=== PATIENT | male | born 1950 | race Caucasian/White ===

== ENCOUNTER → 2020-09-30 | Outpatient (CLI) | payer BC, MEDICARE ==
[~2020-09-30] MED LIST: NAPR220C2 PO
[2020-09-30 10:51] LABS: BASOPHILS % (AUTO) 1 % (0-1); EOSINOPHILS % (AUTO) 5 % (1-7); LYMPHOCYTES % (AUTO) 40 % (22-44); MEAN CORPUSCULAR HEMOGLOBIN 32.9 pg (27.5-34.5); MEAN CORPUSCULAR HGB CONC 34.2 g/dL (33.2-36.2); MEAN PLATELET VOLUME 7.6 fL (7.4-10.4); MONOCYTES % (AUTO) 10 % (2-9); NEUTROPHILS % (AUTO) 43 % (42-75); PLATELET COUNT 173 x10^3/uL (130-400); RED BLOOD COUNT 4.63 x10^6/uL (4.38-5.82); RED CELL DISTRIBUTION WIDTH 13.6 % (9.4-14.8)
[2020-09-30 10:52] LABS: MD NO
[2020-09-30 11:03] LABS: INTERNATIONAL NORMALIZED RATIO 1.02 (0.93-1.1); PROTHROMBIN TIME 10.9 Seconds (9.6-11.5)
[2020-09-30 11:04] LABS: ANION GAP 1 mmol/L (5-15); CALCIUM 8.4 mg/dL (8.5-10.1); CHLORIDE 112 mmol/L (98-107); CREATININE 1.48 mg/dL (0.7-1.3)
== END | disposition home or self-care (01) ==
LOC: STAR 09:07
PROVIDERS: ATTEND Orthopaedic Surgery
DX: Z01.812 Encounter for preprocedural laboratory examination (principal); Z20.822 Contact with and (suspected) exposure to COVID-19; M17.11 Unilateral primary osteoarthritis, right knee; Z79.01 Long term (current) use of anticoagulants
CPT/HCPCS: 36415; 80048; 83036; 85025; 85610; 85730; 87081; 93005; U0003

== ENCOUNTER 2020-10-06 12:12 | Inpatient (IN) | payer BC, MEDICARE ==
[~2020-10-06] VITALS: Ht 190.5 cm; Wt 151.6 kg
[2020-10-06] MEDS ORDERED: KETOROLAC 60 MG/2 ML ONE (12:17)
[2020-10-06] MEDS ORDERED: TRANEXAMIC ACID 100 MG/ML, 10ML ONE ×2 (12:18)
[2020-10-06] MEDS ORDERED: ROPIvacaine/PF 0.5%, 20 ML ONE (12:18)
[2020-10-06] MEDS ORDERED: ROPIvacaine/PF 0.5%, 30 ML ONE (12:18)
[2020-10-06] MEDS ORDERED: SODIUM CHLORIDE 0.9% 50 ML ONE (12:18)
[2020-10-06] MEDS ORDERED: VANCOMYCIN 1,000 MG ONE (12:18)
[2020-10-06] MEDS ORDERED: EPINEPHRINE 1 MG/ML, 1ML ONE (12:18)
[2020-10-06 12:49] VITALS: BP 218/106
[2020-10-06] MEDS ORDERED: CHLORHEXIDINE 15 ML UDC ONE (12:50)
[2020-10-06] MEDS ORDERED: CHLORHEXIDINE 15 ML UDC PO ONE (13:00)
[2020-10-06] MEDS ORDERED: ACETAMINOPHEN 500 MG TABLET PO ONE (13:00)
[2020-10-06] MEDS ORDERED: GABAPENTIN 300 MG CAPSULE PO ONE (13:00)
[2020-10-06] MEDS ORDERED: FENTANYL PF 100 MCG/2ML ONE ×2 (13:07→13:08)
[2020-10-06] MEDS: LACTATED RINGERS 1,000 ML IV SCH ×2 (13:11→18:23)
[2020-10-06] MEDS ORDERED: PROPOFOL 50 ML ONE (13:25)
[2020-10-06] MEDS ORDERED: hydrALAzine 20 MG/ML, 1ML IV ONE (13:30)
[2020-10-06] MEDS ORDERED: CEFAZOLIN PMX 2GM/50ML 50 ML IVPB SCH (14:00)
[2020-10-06] MEDS ORDERED: ONDANSETRON 2MG/ML, 2ML IV PRN (14:00)
[2020-10-06] MEDS ORDERED: BISACODYL 10 MG SUPP PR PRN (14:00)
[2020-10-06] MEDS ORDERED: SENNA/DOCUSATE TABLET PO PRN (14:00)
[2020-10-06] MEDS ORDERED: DIPHENHYDRAMINE 25 MG CAPSULE PO PRN (14:00)
[2020-10-06] MEDS ORDERED: HYDROcodone/APAP 5/325 TABLET PO PRN (14:00)
[2020-10-06] MEDS ORDERED: ZOLPIDEM 5MG TABLET PO PRN (14:00)
[2020-10-06] MEDS ORDERED: MAGNESIUM HYDROXIDE 8%, 30ML UDC PO PRN (14:00)
[2020-10-06] MEDS ORDERED: ONDANSETRON 4 MG TABLET PO PRN (14:00)
[2020-10-06] MEDS ORDERED: HYDROmorphone 1 MG/ML, 1ML INJ IV PRN (14:00)
[2020-10-06] MEDS ORDERED: ACETAMINOPHEN 650 MG/20.3 ML UDC PO PRN (14:00)
[2020-10-06] MEDS ORDERED: FENTANYL PF 100 MCG/2ML IV PRN (15:30)
[2020-10-06] MEDS ORDERED: ACETAMINOPHEN 325 MG TABLET PO PRN (15:30)
[2020-10-06] MEDS ORDERED: LABETALOL 5MG/ML, 20ML IV PRN (15:30)
[2020-10-06] MEDS ORDERED: METHOCARBAMOL 1,000 MG in DEXTROSE 5% 100 ML IV PRN (15:30)
[2020-10-06] MEDS ORDERED: MEPERIDINE/PF 25MG/0.5ML IVPush PRN (15:30)
[2020-10-06] MEDS ORDERED: HYDROmorphone 1 MG/ML, 1ML INJ IVPush PRN (15:30)
[2020-10-06] MEDS ORDERED: hydrALAzine 20 MG/ML, 1ML IV PRN (15:30)
[2020-10-06] MEDS ORDERED: OXYcodone 5 MG/5 ML ORAL.SOL UDC PO PRN (15:30)
[2020-10-06] MEDS ORDERED: LORazepam 2 MG/ML, 1ML IVPush PRN (15:30)
[2020-10-06] MEDS ORDERED: PROMETHAZINE 25 MG/ML, 1ML IVPush PRN (15:30)
[2020-10-06] MEDS ORDERED: ONDANSETRON 2MG/ML, 2ML IVPush PRN (15:30)
[2020-10-06] MEDS ORDERED: EPHEDRINE 50 MG/ML, 1ML IVPush PRN (15:30)
[2020-10-06] MEDS ORDERED: MEPERIDINE/PF 25MG/ML,1ML ONE (16:51)
[2020-10-06 20:19] VITALS: BP 141/79
[2020-10-06 20:22] VITALS: BP 141/79
[2020-10-06] MEDS: ASPIRIN 81 MG TABLET EC PO SCH (20:49)
[2020-10-06] MEDS: DOCUSATE 100 MG CAPSULE PO SCH (20:49)
[2020-10-06] MEDS: NS + 20MEQ KCL 1,000 ML IV SCH (22:31)
[2020-10-06] MEDS: CEFAZOLIN PMX 2GM/50ML 50 ML IVPB SCH (22:31)
[2020-10-06] MEDS: OXYcodone IR 5MG TABLET PO PRN (22:32)
[2020-10-07 00:27] VITALS: BP 145/77
[2020-10-07] MEDS: OXYcodone IR 5MG TABLET PO PRN ×3 (04:47→20:45)
[2020-10-07 05:12] VITALS: BP 169/84
[2020-10-07] MEDS ORDERED: DEXAMETHASONE 4 MG/ML, 1ML IVPush SCH (06:00)
[2020-10-07] MEDS: ASPIRIN 81 MG TABLET EC PO SCH ×2 (06:16→17:17)
[2020-10-07] MEDS: CEFAZOLIN PMX 2GM/50ML 50 ML IVPB SCH (06:16)
[2020-10-07 07:04] VITALS: BP 158/88
[2020-10-07] MEDS: NS + 20MEQ KCL 1,000 ML IV SCH ×2 (09:03→21:00)
[2020-10-07] MEDS: DOCUSATE 100 MG CAPSULE PO SCH ×2 (09:04→20:45)
[2020-10-07 13:04] VITALS: BP 191/95
[2020-10-07 14:25] VITALS: BP 158/79
[2020-10-07 19:43] VITALS: BP 156/79
[2020-10-08 01:11] VITALS: BP 143/83
[2020-10-08] MEDS: ASPIRIN 81 MG TABLET EC PO SCH ×2 (05:03→18:31)
[2020-10-08] MEDS: OXYcodone IR 5MG TABLET PO PRN ×2 (05:03→13:05)
[2020-10-08 07:10] VITALS: BP 148/71
[2020-10-08] MEDS: DOCUSATE 100 MG CAPSULE PO SCH ×2 (09:03→20:41)
[2020-10-08 13:23] VITALS: BP 135/81
[2020-10-08] MEDS: NS + 20MEQ KCL 1,000 ML IV SCH (17:05)
[2020-10-08 20:32] VITALS: BP 112/89
[2020-10-09 02:42] VITALS: BP 158/81
[2020-10-09] MEDS: NS + 20MEQ KCL 1,000 ML IV SCH ×2 (04:52→16:25)
[2020-10-09] MEDS: OXYcodone IR 5MG TABLET PO PRN (04:57)
[2020-10-09] MEDS: ASPIRIN 81 MG TABLET EC PO SCH ×2 (06:23→17:15)
[2020-10-09 07:32] VITALS: BP 158/81
[2020-10-09] MEDS: DOCUSATE 100 MG CAPSULE PO SCH ×2 (09:19→20:30)
[2020-10-09 13:12] VITALS: BP 128/61
[2020-10-09] MEDS: ACETAMINOPHEN 325 MG TABLET PO PRN ×2 (17:15→21:32)
[2020-10-09 18:39] VITALS: BP 151/78
[2020-10-10 02:10] VITALS: BP 169/75
[2020-10-10] MEDS: ASPIRIN 81 MG TABLET EC PO SCH ×2 (05:57→17:58)
[2020-10-10] MEDS: NS + 20MEQ KCL 1,000 ML IV SCH ×2 (06:19→17:58)
[2020-10-10 07:29] VITALS: BP 152/99
[2020-10-10] MEDS: DOCUSATE 100 MG CAPSULE PO SCH ×2 (09:28→22:04)
[2020-10-10] MEDS: ACETAMINOPHEN 325 MG TABLET PO PRN (11:15)
[2020-10-10 13:37] VITALS: BP 131/65
[2020-10-10 18:59] VITALS: BP 156/73
[2020-10-11 00:59] VITALS: BP 167/89
[2020-10-11] MEDS: NS + 20MEQ KCL 1,000 ML IV SCH ×2 (06:27→18:42)
[2020-10-11 06:32] LABS: CLOSTRIDIUM DIFFICILE ANTIGEN NEGATIVE; CLOSTRIDIUM DIFFICILE TOXIN NEGATIVE (Negative)
[2020-10-11] MEDS: ASPIRIN 81 MG TABLET EC PO SCH ×2 (06:32→18:35)
[2020-10-11] MEDS: DOCUSATE 100 MG CAPSULE PO SCH ×2 (07:36→22:58)
[2020-10-11 07:51] VITALS: BP 156/82
[2020-10-11] MEDS ORDERED: ASPI-963 PO (08:15)
[2020-10-11 14:23] VITALS: BP 165/79
[2020-10-11] MEDS: ACETAMINOPHEN 325 MG TABLET PO PRN ×2 (15:20→22:58)
[2020-10-11 18:18] VITALS: BP 131/72
[2020-10-12 01:08] VITALS: BP 123/73
[2020-10-12] MEDS: ACETAMINOPHEN 325 MG TABLET PO PRN ×2 (06:36→18:18)
[2020-10-12] MEDS: ASPIRIN 81 MG TABLET EC PO SCH ×2 (06:36→18:18)
[2020-10-12 07:21] VITALS: BP 147/72
[2020-10-12] MEDS: NS + 20MEQ KCL 1,000 ML IV SCH ×2 (08:00→20:30)
[2020-10-12] MEDS: DOCUSATE 100 MG CAPSULE PO SCH ×2 (09:30→20:07)
[2020-10-12] MEDS ORDERED: TRAM50TA2 PO (10:30)
[2020-10-12] MEDS ORDERED: OXYC5CAP2 PO (10:31)
[2020-10-12 13:38] VITALS: BP 130/73
[2020-10-12 18:29] VITALS: BP 158/83
[2020-10-13 00:39] VITALS: BP 151/79
[2020-10-13] MEDS: OXYcodone IR 5MG TABLET PO PRN ×3 (04:15→16:30)
[2020-10-13] MEDS: ASPIRIN 81 MG TABLET EC PO SCH ×2 (05:50→17:11)
[2020-10-13 07:26] VITALS: BP 146/74
[2020-10-13] MEDS: NS + 20MEQ KCL 1,000 ML IV SCH (07:31)
[2020-10-13] MEDS: DOCUSATE 100 MG CAPSULE PO SCH (08:12)
[2020-10-13] MEDS: ACETAMINOPHEN 325 MG TABLET PO PRN ×2 (11:59→16:30)
[2020-10-13 13:42] VITALS: BP 144/74
== END 2020-10-13 17:45 | DRG 470 ==
LOC: OUT 12:12 → 4NE 19:40 → OUT 20:28 → 4NE 20:28
PROVIDERS: ADMIT Orthopaedic Surgery; ATTEND Orthopaedic Surgery
PROC: 0SRC069 Replacement of Right Knee Joint with Oxidized Zirconium on Polyethylene Synthetic Substitute, Cemented, Open Approach (ICD-10-PCS; principal; 2020-10-06 14:15)
DX: M17.11 Unilateral primary osteoarthritis, right knee (principal); F05 Delirium due to known physiological condition; Z88.0 Allergy status to penicillin; M25.561 Pain in right knee; M25.551 Pain in right hip
CPT/HCPCS: 36415; 82962; 85014; 85018; 87324; C1713; G0378; J0171; J0690; J1100; J1885; J2175; J2704; J2795; J3010; J3370; J3480; C1776; J0360; J7120; Q0163